=== PATIENT | male | born 1970 | race Two or more races ===

== ENCOUNTER 2021-05-13 09:24 | Emergency (ER) | payer MEDICAID, OTHER ==
[~2021-05-13] VITALS: Ht 165.1 cm; Wt 99.8 kg
[2021-05-13] MEDS ORDERED: SODIUM CHLORIDE 0.9% 1,000 ML IV ONE (12:15)
[2021-05-13] MEDS ORDERED: cloNIDine HCL 0.1 MG TAB PO ONE (12:15)
[2021-05-13 13:49] LABS: Basophils # (auto) 0.1 10 ^3/uL (0-0.2); Basophils % (auto) 1.1 % (0.0-2.0); Eosinophils # (auto) 0.2 10 ^3/uL (0-0.8); Eosinophils % (auto) 2.3 % (0.0-7.0); Hematocrit 48.9 % (41.0-53.0); Hemoglobin 16.3 g/dL (13.5-17.5); Lymphocytes # (auto) 2.9 10 ^3/uL (0.4-5.4); Lymphocytes % (auto) 32.4 % (10.0-50.0); Mean Corpuscular Hemoglobin 31.1 pg (28.0-32.0); Mean Corpuscular Hgb Conc. 33.4 g/dL (32.0-36.0); Mean Corpuscular Volume 93.1 fL (80.0-100.0); Monocytes # (auto) 0.9 10 ^3/uL (0-1.3); Monocytes % (auto) 9.4 % (0.0-12.0); Neutrophils # (auto) 4.9 10 ^3/uL (1.6-8.6); Neutrophils % (auto) 54.8 % (37.0-80.0); Nucleated Red Blood Cells % 0.1 %; Red Blood Cells 5.25 10^6/uL (4.5-5.90); Red Cell Distribution Width 13.2 % (11.8-14.3)
[2021-05-13 14:08] LABS: Albumin 3.8 g/dL (3.4-5.0); Calcium 9.1 mg/dL (8.5-10.1); Magnesium 2.7 mg/dL (1.6-2.6); Potassium 4.6 mmol/L (3.5-5.1)
[2021-05-13 14:13] LABS: BUN/Creatinine Ratio 16.3; Bilirubin, Total 0.4 mg/dL (0.2-1.0); Total Protein 8.6 g/dL (6.4-8.2)
[2021-05-13 14:48] VITALS: BP 165/98
== END 2021-05-13 14:50 | disposition home or self-care (01) ==
LOC: ER 09:24
DX: L03.116 Cellulitis of left lower limb (principal); I10 Essential (primary) hypertension
CPT/HCPCS: 36415; 71046; 80053; 83735; 84443; 85025; 93005; 93971

== ENCOUNTER 2022-12-18 10:51 | Emergency (ER) | payer MEDICAID ==
[~2022-12-18] VITALS: Ht 160 cm; Wt 110.6 kg
[2022-12-18 11:56] VITALS: BP 143/116
[2022-12-18] MEDS ORDERED: LIDOCAINE 1% HCL (LOCAL ANESTH.) INJ 20ML MDV ID ONE (13:30)
[2022-12-18] MEDS ORDERED: TETANUS-DIPTH-ACEL PERTUSSIS 0.5ML SYR Tdap IM ONE (13:30)
[2022-12-18] MEDS ORDERED: cefTRIAXone SOD 1,000 MG VL IM ONE (13:30)
[2022-12-18] MEDS ORDERED: NEOMYCIN-BACITRACIN-POLYM UNITDOSE PKG TOP OINT TOP ONE (13:30)
[2022-12-18] MEDS ORDERED: IBUPROFEN 600 MG TAB PO ONE (13:30)
[2022-12-18] MEDS ORDERED: AUG875T PO (13:39)
[2022-12-18] MEDS ORDERED: IBUP600T28 PO (13:39)
== END 2022-12-18 14:05 | disposition home or self-care (01) ==
LOC: ER 10:51
DX: S71.152A Open bite, left thigh, initial encounter (principal); I10 Essential (primary) hypertension; W54.0XXA Bitten by dog, initial encounter; Y93.89 Activity, other specified; Y92.89 Other specified places as the place of occurrence of the external cause; Y99.8 Other external cause status
CPT/HCPCS: 90471; 90715; 96372; 99284; J0696; J2001

== ENCOUNTER 2022-12-22 12:38 | Emergency (ER) | payer MEDICAID ==
[~2022-12-22 12:38] MED LIST: AUG875T PO; IBUP600T28 PO
[2022-12-22 14:59] VITALS: BP 178/90
[2022-12-22] MEDS ORDERED: AUG875T PO (15:03)
[2022-12-22] MEDS ORDERED: LISI20TA28 PO (15:03)
== END 2022-12-22 15:15 | disposition home or self-care (01) ==
LOC: ER 12:38
DX: S71.152D Open bite, left thigh, subsequent encounter (principal); I10 Essential (primary) hypertension; W54.0XXD Bitten by dog, subsequent encounter

== ENCOUNTER → 2023-02-08 | Outpatient (CLI) | payer MEDICAID ==
[~2023-02-08] MED LIST changes: +IBUP1TAB5 PO; -IBUP600T28 PO; +LISI20TA56 PO
== END | disposition home or self-care (01) ==
LOC: Rad HDHVI 12:56
PROVIDERS: ATTEND Internal Medicine Cardiovascular Disease
DX: R07.89 Other chest pain (principal)
CPT/HCPCS: 93306

== ENCOUNTER → 2023-02-27 | Outpatient (CLI) | payer MEDICAID ==
[~2023-02-27] VITALS: Ht 165.1 cm; Wt 110.7 kg
[~2023-02-27] MED LIST changes: +ADENOSINE 90 MG/30 ML INJ IV ONE; +ADENOSINE 93 MG in GIVE UN-DILUTED 0 ML IV ONE
== END | disposition home or self-care (01) ==
LOC: Rad HDHVI 13:26
PROVIDERS: ATTEND Internal Medicine Cardiovascular Disease
DX: I10 Essential (primary) hypertension (principal); I25.10 Atherosclerotic heart disease of native coronary artery without angina pectoris; R07.89 Other chest pain; Z82.49 Family history of ischemic heart disease and other diseases of the circulatory system
CPT/HCPCS: 78452; 93005; 96374; 96375; A9500; J0153

== ENCOUNTER → 2023-04-08 | Outpatient (CLI) | payer MEDICAID ==
[~2023-04-08] MED LIST changes: -ADENOSINE 90 MG/30 ML INJ IV ONE; -ADENOSINE 93 MG in GIVE UN-DILUTED 0 ML IV ONE; +CLOP75TA28 PO; +ISOS1TAB37 PO; +METO-159 PO
[2023-04-08 09:30] VITALS: BP 195/107; PULSE 67; RESP 18; O2SAT 95
[2023-04-08 09:42] VITALS: BP 178/102; PULSE 68; RESP 18; O2SAT 95
== END | disposition home or self-care (01) ==
LOC: Rad HDHVI 09:12
PROVIDERS: ATTEND Internal Medicine Cardiovascular Disease
DX: Z01.818 Encounter for other preprocedural examination (principal); I10 Essential (primary) hypertension; R00.2 Palpitations; I20.0 Unstable angina; R06.02 Shortness of breath
CPT/HCPCS: 71046; G0463

== ENCOUNTER 2023-04-11 07:10 | Day surgery (SDC) | payer MEDICAID ==
[2023-04-08 11:13] LABS: Basophils # (auto) 0.1 10 ^3/uL (0-0.2); Basophils % (auto) 1.4 % (0.0-2.0); Eosinophils # (auto) 0.2 10 ^3/uL (0-0.8); Eosinophils % (auto) 2.7 % (0.0-7.0); Hematocrit 45.8 % (41.0-53.0); Hemoglobin 15.6 g/dL (13.5-17.5); Lymphocytes # (auto) 2.6 10 ^3/uL (0.4-5.4); Lymphocytes % (auto) 34.3 % (10.0-50.0); Mean Corpuscular Hemoglobin 31.7 pg (28.0-32.0); Mean Corpuscular Hgb Conc. 34.1 g/dL (32.0-36.0); Monocytes # (auto) 0.8 10 ^3/uL (0-1.3); Monocytes % (auto) 10.9 % (0.0-12.0); Neutrophils # (auto) 3.8 10 ^3/uL (1.6-8.6); Neutrophils % (auto) 50.7 % (37.0-80.0); Red Blood Cells 4.92 10^6/uL (4.5-5.90); Red Cell Distribution Width 13.6 % (11.8-14.3); White Blood Cell 7.4 10^3/uL (4.4-10.8)
[2023-04-08 11:33] LABS: INR 0.98 (0.9-1.15); Partial Thromboplastin Time 28.2 SEC (24.5-34.5); Prothrombin Time 10.3 sec (9.3-11.8)
[2023-04-08 12:13] LABS: Calcium 8.1 mg/dL (8.5-10.1); Potassium 4.2 mmol/L (3.5-5.1)
[2023-04-08 12:29] LABS: BUN/Creatinine Ratio 18.6 (10.0-20.0)
[~2023-04-11] VITALS: Ht 165.1 cm; Wt 109.3 kg
[2023-04-11] VITALS (8 sets, daily range): BP systolic 109–142; BP diastolic 74–88; PULSE 50–56; RESP 10–22; TEMP 97.8; O2SAT 88–95
[~2023-04-11 07:10] MED LIST changes: -AUG875T PO
[2023-04-11] MEDS ORDERED: fentaNYL CITRATE 100 MCG/2 ML VL ONE (09:20)
[2023-04-11] MEDS ORDERED: ANGIOMAX 250 MG VIAL IV ONE (09:20)
[2023-04-11] MEDS ORDERED: SODIUM CHL 0.9% 0 ML ONE (09:21)
[2023-04-11] MEDS ORDERED: MIDAZOLAM HCL 2MG/2ML 2ml VIAL (1mg/ml) ONE (09:21)
[2023-04-11] MEDS ORDERED: IOHEXOL 350 MG/ML 100ML IJ ONE (09:21)
[2023-04-11] MEDS ORDERED: LIDOCAINE 2%HCL (LOCAL ANESTH.) INJ 20ML MDV ONE (09:21)
[2023-04-11] MEDS ORDERED: NITROGLYCERIN 0.4MG/DOSE SPRAY 4.9GM ONE (09:36)
== END 2023-04-11 12:35 | disposition home or self-care (01) ==
LOC: CATH 07:10
PROVIDERS: ATTEND Internal Medicine Cardiovascular Disease
DX: R07.89 Other chest pain (principal); I10 Essential (primary) hypertension; E66.01 Morbid (severe) obesity due to excess calories; Z79.01 Long term (current) use of anticoagulants; Z79.899 Other long term (current) drug therapy
CPT/HCPCS: 36415; 80048; 85025; 85610; 85730; 93458; C1894; J1644; J2250; J3010; Q9967; 99152